=== PATIENT | male | born 1940 | race Caucasian/White ===

== ENCOUNTER 2018-04-10 08:28 | Outpatient (CLI) | payer MEDICARE, BC ==
[2018-04-10 09:20] LABS: Estimated GFR-MDRD - POC Greater than 90
[2018-04-10] MEDS ORDERED: ISOVUE-370 76%-LOCM 1 ML ONE (16:14)
--- NOTE | 2018-04-11 10:07 | CT ---
CT CORONARY ANGIOGRAM WITH AND WITHOUT CONTRAST: Date: 04/10/18 HISTORY: 77-year-old male with hypercholesterolemia. Height: 6'0 Weight: 182 lbs Heart rate during exam: 58-65 BPM TECHNIQUE: IV contrast: 98 mL [id number] Precontrast and postcontrast scans obtained through the heart, with limited field of view around the heart. 3D MIP reconstructions. FINDINGS: No thoracic aortic aneurysm or dissection. Mild ectasia of ascending thoracic aorta. Trachea and bila teral mainstem bronchi are patent and clear. Subsegmental atelectasis and/or scar at left lower lobe. No consolidation or mass visualized in the rest of the central portions of the lungs. No cardiomegal y or pericardial effusion. No chamber dilation. No atrial septal defect or ventricular septal defect. Left main: Tiny mild calcified plaque. No significant stenosis. Left anterior descending: Multifocal calcified plaque proximally and at mid portion. No high grade s tenosis proximally. There is a focal short segment moderate stenosis at mid LAD. First diagonal: Mild to moderate stenosis proximally, close to the origin. Left circumflex: Approximately 1 cm distal to the origin of the first obtuse marginal branch, there is calcified plaque causing moderate, and possibly severe, stenosis in the mid LCX. There is mild to moderate stenosis in the distal LCX. Mild stenosis at very proximal first obtuse marginal. RCA: No high grade stenosis at proximal, mid, and distal segments. Posterior descending: Right dominant PDA. Moderate to severe stenosis at origin of PDA from the RCA. Another focus of moderate stenosis at mid-distal PDA. IMPRESSION: 1. Coronary atherosclerotic disease, with mild and moderate stenosis, three vessel disease. 2. Possible severe stenosis at left circumflex and posterior descending. POS: [facility]
== END 2018-04-10 08:29 | disposition home or self-care (01) ==
LOC: BICCT 08:28
PROVIDERS: ATTEND Internal Medicine
DX: I65.29 Occlusion and stenosis of unspecified carotid artery (principal); I25.10 Atherosclerotic heart disease of native coronary artery without angina pectoris
CPT/HCPCS: 75574; 82565

== ENCOUNTER 2018-11-02 08:42 | Outpatient (CLI) | payer MEDICARE, BC ==
[2018-11-02 09:04] LABS: Estimated GFR-MDRD - POC Greater than 90
--- NOTE | 2018-11-02 09:23 | CT ---
EXAM: CTA of the chest HISTORY: Possible aortic root enlargement on ultrasound. COMPARISON: None TECHNIQUE: Multiple contiguous axial images were obtained a CTA of the chest with contrast. Sagittal and coronal 3-D MIP reformats were performed. FINDINGS: HEART: Normal in size without focal cardiac abnormality. Calcifications in the coronary arteries and aorta. PULMONARY ARTERIES: Normal in caliber without filling defects to suggest pulmonary emboli. THORACIC AORTA: The sinus of Valsalva measures 4.0 cm in greatest dimension. The ascending aorta khalif ures 3.5 cm in greatest dimension. The descending thoracic aorta measures 2.5 cm in greatest dimension. No aortic dissection. MEDIASTINUM: No hilar or mediastinal lymphadenopathy. LUNGS: No focal infiltrates or masses. PLEURAL SPACE: No pleural effusion or pneumothorax. CHEST WALL SOFT TISSUES: Unremarkable VISUALIZED OSSEOUS STRUCTURES: Degenerative changes are seen in the spine. VISUALIZED SUBDIAPHRAGMATIC STRUCTURES: Enlargement of the left renal pelvis without calyceal dilatat ion. IMPRESSION: Ectasia of the sinus of Valsalva
[2018-11-02] MEDS ORDERED: Iopamidol 370 76% 100 ML VIAL ONE (10:57)
== END 2018-11-02 08:43 | disposition home or self-care (01) ==
LOC: BICCT 08:42
PROVIDERS: ATTEND Internal Medicine Cardiovascular Disease
DX: I25.10 Atherosclerotic heart disease of native coronary artery without angina pectoris (principal); I77.810 Thoracic aortic ectasia
CPT/HCPCS: 71275; 82565; Q9967

== ENCOUNTER 2018-11-27 09:54 | Outpatient (CLI) | payer MEDICARE, BC ==
--- NOTE | 2018-11-27 10:37 | CT ---
EXAM: CTA Angio Abd Pelvis W WO Con PROVIDED CLINICAL HISTORY: Abnormal abdominal aortic ultrasound COMPARISON: CT 07/11/2014 FINDINGS: The visualized lung bases are free of significant opacity. There is interval development of a hyperdense exophytic mass arising from the posterior aspect of the left kidney inferiorly measuring approximately 1.4 cm. Bilateral parapelvic renal cysts, left greater than right redemonstrated. The solid abdominal organs are suboptimally evaluated in the arter ial phase of contrast but demonstrate an otherwise unremarkable CT appearance for the phase of contrast in which the study was acquired. There is no bowel dilatation, inflammatory fat stranding, free fluid or lymph node enlargement appare nt. There is stable ectasia of the distal infrarenal abdominal aorta measuring about 2.8 cm. Associated c hronic dissection is also stable. There is mild origin stenosis of the left renal artery. The celiac, superior mesenteric, main and accessory right renal and inferior mesenteric arteries appear p atent. Multifocal atherosclerotic vascular calcification is noted. The osseous structures demonstrate no concerning lytic or blastic lesions. Lumbar spine degenerative changes are seen. IMPRESSION: 1. Interval development of hyperdense exophytic left renal mass, probably solid and suspicious for ne oplasm. A hyperdense cyst could also be considered but is felt less likely. Dedicated imaging is recommended. 2. 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
== END 2018-11-27 09:55 | disposition home or self-care (01) ==
LOC: BICCT 09:54
PROVIDERS: ATTEND Internal Medicine Cardiovascular Disease
DX: I71.2 Thoracic aortic aneurysm, without rupture (principal); I77.811 Abdominal aortic ectasia; I71.02 Dissection of abdominal aorta; N28.9 Disorder of kidney and ureter, unspecified
CPT/HCPCS: 74174

== ENCOUNTER 2019-01-05 08:30 | Day surgery (SDC) | payer MEDICARE, BC ==
[2019-01-04 18:33] VITALS: BMI 25.7
[2019-01-05 08:39] LABS: #Eosinphils 0.2 thou/uL (0.0-0.7); #Lymphocytes 1.9 thou/uL (1.20-3.40); #Monocytes 0.6 thou/uL (0.11-0.59); #Neutrophils 4.5 thou/uL (1.40-6.50); %Basophils 0.2 % (0.0-1.0); %Eosinophils 2.5 % (0.0-10.0); %Lymphocytes 26.5 % (21.0-51.0); %Monocytes 8.2 % (0.0-10.0); %Neutrophils 62.6 % (42.0-75.0); Hemoglobin 13.7 g/dL (14.0-18.0); Mean Corpuscular HGB CONC 33.8 g/dL (32.0-36.0); Mean Corpuscular Hemoglobin 30.9 pg (27.0-31.0); Mean Corpuscular Volume 91.4 fL (78.0-98.0); Mean Platelet Volume 6.9 fL (7.4-10.4); Platelet Count 180 thou/uL (130-400); RBC Distribution Width 12.1 % (11.5-14.5); Red Blood Cell (RBC) Count 4.44 mill/uL (4.70-6.10); White Blood Cell (WBC) Count 7.3 thou/uL (4.8-10.8)
[2019-01-05 08:42] LABS: PTT 25.9 SEC (22.9-36.1)
--- NOTE | 2019-01-05 15:54 | CT ---
PROCEDURE: CT Renal Perc Biopsy PROVIDED CLINICAL HISTORY: Exophytic inferior pole left renal mass. COMPARISON: CTA abdomen on 11/27/2018 TECHNIQUE: The procedure including the risks and complications were explained to the patient, and informed conse nt was obtained. The patient was placed on the CT scan table in the prone position. A limited noncontrasted CT scan was obtained through the level of the kidneys with a grid localizer in place. A n area overlying the inferior pole left renal mass was marked. The area was meticulously prepped and draped in the usual sterile fashion. A small skin incision was made. A 17-gauge guide needle was advanced to the level of the inferior pole left renal mass, and needle po sitioning was confirmed with axial noncontrasted CT images. A total of four 18-gauge core needle biopsy specimens were obtained utilizing coaxial technique. The needle was removed, and hemostasis wa s achieved with direct pressure. Follow-up CT examination demonstrates gas at site of biopsy, but there is no hematoma or fluid seen at biopsy site. Patient remained stable during the procedure as we ll as postprocedure. Patient tolerated the procedure well and without immediate complication. Patient was transported to radiology nurses holding area for further monitoring prior to discharge. IMPRESSION: Technically successful CT-guided percutaneous biopsy of an inferior pole left renal mass. Pathology i s currently pending.
== END 2019-01-05 13:30 | disposition home or self-care (01) ==
LOC: CT 08:30
PROVIDERS: ATTEND Urology
PROC: 0TB13ZX Excision of Left Kidney, Percutaneous Approach, Diagnostic (ICD-10-PCS; principal; 2019-01-05)
DX: D30.02 Benign neoplasm of left kidney (principal); I10 Essential (primary) hypertension; E78.00 Pure hypercholesterolemia, unspecified; M06.9 Rheumatoid arthritis, unspecified; N40.1 Benign prostatic hyperplasia with lower urinary tract symptoms; R39.12 Poor urinary stream; Z87.891 Personal history of nicotine dependence; Z79.82 Long term (current) use of aspirin; Z79.899 Other long term (current) drug therapy
CPT/HCPCS: 36415; 50200; 77002; 85025; 85610; 85730; 88305; 88333; 88334; 88341; 88342

== ENCOUNTER 2019-06-02 07:36 | Outpatient (CLI) | payer MEDICARE, BC ==
[2019-06-02 15:19] LABS: Bacteria/HPF None Seen HPF (None Seen); Bilirubin Negative (Negative); Blood, Urine Negative (Negative); Clarity Clear (Clear); Glucose, Urine (Dipstick) Normal (Negative); Leukocyte Negative Leu/uL (Negative); Nitrite Negative (Negative); Protein, Urine (Dipstick) Negative (Neg-Trace); RBC/HPF 0-3 HPF (0-3); Squamous Epithelial None Seen HPF (0-3); Urobilinogen Normal mg/dL (Less than 2); WBC/HPF None Seen HPF (0-3)
[2019-06-02 15:20] LABS: Mean Corpuscular HGB CONC 31.9 g/dL (32.0-36.0); Mean Corpuscular Hemoglobin 28.4 pg (27.0-31.0); Mean Corpuscular Volume 89.3 fL (78.0-98.0); Mean Platelet Volume 7.7 fL (7.4-10.4); Platelet Count 192 thou/uL (130-400); RBC Distribution Width 11.5 % (11.5-14.5); Red Blood Cell (RBC) Count 4.91 mill/uL (4.70-6.10)
[2019-06-02 15:31] LABS: PTT 26.8 SEC (22.9-36.1)
[2019-06-02 15:39] LABS: Anion Gap 15 mmol/L (10-20); BUN (Urea Nitrogen) 14 mg/dL (8.4-25.7); Calc. Creatinine Clearance 0 mL/min (70-130); Calcium 9.5 mg/dL (7.8-10.44); Carbon Dioxide 24 mmol/L (23-31); Chloride 109 mmol/L (98-107); Estimated GFR-MDRD 79; Glucose 82 mg/dL (83-110); Potassium 4.5 mmol/L (3.5-5.1); Sodium 143 mmol/L (136-145)
== END 2019-06-02 07:37 | disposition home or self-care (01) ==
LOC: LABBT 07:36
PROVIDERS: ATTEND Urology
DX: Z01.818 Encounter for other preprocedural examination (principal); N40.1 Benign prostatic hyperplasia with lower urinary tract symptoms; R39.12 Poor urinary stream; D30.00 Benign neoplasm of unspecified kidney; N52.9 Male erectile dysfunction, unspecified; R97.20 Elevated prostate specific antigen [PSA]
CPT/HCPCS: 80048; 81001; 85027; 85610; 85730; 87086; 93005; 93010

== ENCOUNTER 2019-06-10 09:17 | Observation (INO) | payer MEDICARE, BC ==
[2019-06-02 14:16] VITALS: BMI 25.2
[2019-06-10] MEDS ORDERED: Levofloxacin 500 mg/D5W 100 ml Premix Bag ONE (09:52)
[2019-06-10] MEDS ORDERED: PROPOFOL 200 MG/20 ML VIAL ONE (09:53)
[2019-06-10] MEDS ORDERED: Ondansetron PF 4 MG/2 ML Vial ONE (09:53)
[2019-06-10] MEDS ORDERED: Lidocaine 1% PF 5 ML VIAL ONE (09:53)
[2019-06-10] MEDS ORDERED: Fentanyl 100 MCG/2 ML VIAL ONE (10:54)
[2019-06-10] MEDS ORDERED: B & O ONE (11:20)
[2019-06-10] MEDS ORDERED: Promethazine HCl 25 MG/ML VIAL SLOW IVP PRN (12:47)
[2019-06-10] MEDS ORDERED: Ondansetron HCl/PF 4 MG/2 ML Vial IVP PRN (12:47)
[2019-06-10] MEDS ORDERED: Morphine Sulfate 2 MG/ML SYRINGE SLOW IVP PRN (12:47)
[2019-06-10] MEDS ORDERED: diphenhydrAMINE 25 MG CAP PO PRN (12:54)
[2019-06-10] MEDS ORDERED: Ondansetron PF 4 MG/2 ML Vial IVP PRN (12:54)
[2019-06-10] MEDS ORDERED: Mag-Al 1200 mg/1200 mg/30 ML UDCUP PO PRN (12:54)
[2019-06-10] MEDS ORDERED: hydrALAZINE 20 MG/ML VIAL SLOW IVP PRN (12:54)
[2019-06-10] MEDS ORDERED: Acetaminophen 500 MG TAB PO PRN (12:54)
[2019-06-10] MEDS ORDERED: Bisacodyl 10 MG SUPP PR PRN (12:54)
[2019-06-10] MEDS ORDERED: Phenazopyridine HCl 97.5 MG TABLET PO PRN (12:54)
[2019-06-10] MEDS ORDERED: Oxybutynin 5 MG TAB PO PRN (12:54)
[2019-06-10] MEDS ORDERED: Morphine 2 MG/ML SYRINGE SLOW IVP PRN (12:54)
[2019-06-10] MEDS ORDERED: Hyoscyamine Sulfate SL 0.125 mg Tablet SL PRN (12:54)
[2019-06-10] MEDS ORDERED: traMADol HCl 50 MG TAB PO PRN (12:57)
--- NOTE | 2019-06-10 16:05 | OP ---
DATE OF PROCEDURE: 06/10/2019 SERVICE: Urology. PREOPERATIVE DIAGNOSES: 1. Benign prostatic hypertrophy. 2. Urinary obstruction. POSTOPERATIVE DIAGNOSIS: Benign prostatic hypertrophy with urinary obstruction. PROCEDURE PERFORMED: Transurethral resection of the prostate. INDICATIONS FOR PROCEDURE: Mr. Quan is a 78-year-old white male, who initially presented to [place] for BPH with urinary symptoms. He was evaluated for UroLift, but his prostate was too large at 88 mL. We elected instead to do a TURP. Risks and benefits of the surgery were discussed and he has agreed to proceed forward. DESCRIPTION OF PROCEDURE: After identification of armband and verification of consent, the patient was brought back to the operating room, where he underwent general anesthesia with an LMA. He was placed in dorsal lithotomy position and prepped and draped in the usual sterile fashion. After appropriate time-out, a 26-Colombian rigid resectoscope sheath with visual obturator was passed through the urethra with ease through the prostate into the bladder. Both ureters were identified in the orthotopic location. The visual obturator was switched out for the bipolar prostate resectoscope loop. Resection was started at the bladder neck and carried out to the verumontanum circumferentially until the prostate was extremely wide open. Resection was not carried out to the capsule laterally, but close to it. Upon completion, the prostate was extremely wide open. The bladder neck was also incised at 5 and 7 o'clock for further alleviation of obstruction. Meticulous hemostasis was performed using the coag function on the bipolar loop. All prostate chips were evacuated via the resectoscope sheath with an Ellik evacuator or manually with the resectoscope. Upon completion, there was no bleeding identified. Both ureters were in orthotopic location, unharmed. The prostate was very wide open. There was no resection carried out beyond the verumontanum. The resectoscope was then removed and a 22-Colombian 3-way Lemus catheter was placed into the patient's bladder with 30 mL of sterile water placed into the balloon. CBI was initiated. B and O suppositories placed in the patient's rectum. He was then taken out of positioning, awakened, taken to PACU for recovery in stable condition. COMPLICATIONS: None. ESTIMATED BLOOD LOSS: Minimal. RETAINED TUBES AND DRAINS: A 22-[place]ombian 3-way Lemus catheter on CBI. SPECIMENS: Prostate chips. DISPOSITION: The patient will be kept in the hospital overnight. We will plan a voiding trial in the morning and discharge subsequently with followup on an outpatient basis. Job ID: [id number]
[2019-06-10] MEDS: Docusate 100 MG CAP PO SCH (19:27)
[2019-06-11 05:43] LABS: #Eosinphils 0.2 thou/uL (0.0-0.7); #Lymphocytes 1.9 thou/uL (1.20-3.40); #Monocytes 0.8 thou/uL (0.11-0.59); #Neutrophils 6.9 thou/uL (1.40-6.50); %Basophils 0.4 % (0.0-1.0); %Eosinophils 1.9 % (0.0-10.0); %Lymphocytes 19.2 % (21.0-51.0); %Monocytes 8.5 % (0.0-10.0); Hemoglobin 12.9 g/dL (14.0-18.0); Mean Corpuscular Hemoglobin 30.1 pg (27.0-31.0); Mean Corpuscular Volume 91.1 fL (78.0-98.0); Mean Platelet Volume 7.5 fL (7.4-10.4); Platelet Count 175 thou/uL (130-400); RBC Distribution Width 11.4 % (11.5-14.5); White Blood Cell (WBC) Count 9.8 thou/uL (4.8-10.8)
[2019-06-11 06:08] LABS: Anion Gap 8 mmol/L (10-20); BUN (Urea Nitrogen) 10 mg/dL (8.4-25.7); Calc. Creatinine Clearance 79 mL/min (70-130); Calcium 8.5 mg/dL (7.8-10.44); Carbon Dioxide 27 mmol/L (23-31); Chloride 106 mmol/L (98-107); Estimated GFR-MDRD 78; Glucose 91 mg/dL (83-110); Potassium 4.4 mmol/L (3.5-5.1); Sodium 137 mmol/L (136-145)
[2019-06-11] MEDS: Docusate 100 MG CAP PO SCH (08:16)
[2019-06-11] MEDS ORDERED: Atorvastatin Calcium 20 MG TAB PO SCH (09:00)
[2019-06-11] MEDS ORDERED: Lisinopril 5 MG TAB PO SCH (09:00)
[2019-06-11 12:23] VITALS: BP 145/79; TEMP 98.5
--- NOTE | 2019-06-11 16:14 | PRG ---
DATE OF SERVICE: 06/11/2019 SUBJECTIVE: The patient states he is feeling very good. He had one or two bladder spasms overnight, but denies any other pain or ongoing issues. His CBI was turned off this morning. He denies any chest pain or shortness of breath. OBJECTIVE: VITAL SIGNS: Temperature 98.5, pulse 60, respirations 12, blood pressure 145/79, and saturation 95% on room air. GENERAL: No apparent distress, communicative, and alert. CARDIOVASCULAR: Regular rate and rhythm. ABDOMEN: Soft, nontender, and nondistended. Positive bowel sounds. : Lemus catheter in place, off CBI with clear yellow urine. [place] urine in the bag. EXTREMITIES: No clubbing, cyanosis, or edema. SCDs in place. LABORATORY EVALUATION: Full set of labs are in the [facility] system, which I have reviewed. Of note, the patient's white count is 9.8 and hemoglobin of 12.9. Creatinine of 0.94. ASSESSMENT AND PLAN: A 78-year-old white male with BPH, status post transurethral resection of the prostate, postop day 1. His CBI is off. We will discontinue his Lemus catheter with serial urine collection. If his urine is clear enough, we will discharge him home with followup on an outpatient basis. Job ID: [id number]
--- NOTE | 2019-06-11 20:08 | DIS ---
DATE OF ADMISSION: 06/10/2019 DATE OF DISCHARGE: 06/11/2019 ADMITTING DIAGNOSIS: BPH. DISCHARGE DIAGNOSIS: BPH. PROCEDURE PERFORMED: While inpatient, transurethral resection of prostate. BRIEF HISTORY: Mr. Quan is a 78-year-old white male with BPH and significant urinary complaints. He elected to proceed with UroLift procedure. However, his prostate was too large, so we elected to proceed with TURP instead. All risks and benefits were discussed. Full H and P can be found in the scanned portion of the [facility]. HOSPITAL COURSE: After surgery (please see operative note for details) the patient was admitted to the hospital for CBI. He had no events overnight other than a few bladder spasms. CBI was turned off in the morning and the patient had his catheter removed when his urine was inspected to be clear. He was able to void three voids afterwards with a light red but translucent urine without clots. The patient felt very good. I went over all the discharge instructions, answered all of his questions, and he was discharged home without any further issues. DISPOSITION: Discharged to home. DISCHARGE CONDITION: Good. DISCHARGE MEDICATION: The patient may resume all of his home medications except saw palmetto, which he will discontinue. He will be given additional prescriptions for: 1. Tramadol 50 mg p.o. q.6 hours p.r.n. for pain. 2. Colace 100 mg p.o. b.i.d. 3. Oxybutynin 5 mg p.o. t.i.d. p.r.n. bladder spasms. 4. Pyridium 200 mg p.o. t.i.d. p.r.n. dysuria. Follow up will be approximately in 2 weeks for postop check. Job ID: [id number]
== END 2019-06-11 13:57 | disposition home or self-care (01) ==
LOC: SDC 09:17 → SURG A 12:58
PROVIDERS: ADMIT Urology; ATTEND Urology
PROC: 0VT08ZZ Resection of Prostate, Via Natural or Artificial Opening Endoscopic (ICD-10-PCS; principal; 2019-06-10)
DX: N40.1 Benign prostatic hyperplasia with lower urinary tract symptoms (principal); N13.8 Other obstructive and reflux uropathy; I10 Essential (primary) hypertension; M10.9 Gout, unspecified; M47.819 Spondylosis without myelopathy or radiculopathy, site unspecified; Z79.899 Other long term (current) drug therapy
CPT/HCPCS: 36415; 80048; 85025; 88305; 96365; G0378; J1956; J2001; J2405; J2704; J3010

== ENCOUNTER 2020-07-04 12:23 | Outpatient (CLI) | payer MEDICARE, BC ==
--- NOTE | 2020-07-04 14:09 | ULT ---
ULTRASOUND RETROPERITONEUM COMPLETE: (RENAL) DATE: 07/04/2020 HISTORY: Follow-up left renal tumor, biopsy-proven oncocytoma COMPARISON: Ultrasound of 12/03/2018 FINDINGS: Multiple bilateral parapelvic renal cysts, the largest around the left renal pelvis. This probably do es not represent hydronephrosis. Right kidney: 11.5 x 6.5 x 6.5 cm. Left kidney: 2.5 x 5.5 x 7 cm. Pedunculated round 1.6 x 1.8 x 1.4 cm hypoechoic mass exophytically protruding from lower pole cortex of left kidney has not significantly changed. This was biopsy-proven oncocytoma. Prevoid urinary bladder volume 420 mL. Post void urinary bladder volume approximately 0 mL No interval change overall IMPRESSION: 1) approximately 1.8 cm exophytic left renal lower pole hypoechoic mass unchanged, biopsy-proven onco cytoma. 2) large parapelvic renal cysts on the left.
== END 2020-07-04 12:24 | disposition home or self-care (01) ==
LOC: BICULT 12:23
PROVIDERS: ATTEND Urology
DX: D30.02 Benign neoplasm of left kidney (principal); N28.1 Cyst of kidney, acquired; N28.89 Other specified disorders of kidney and ureter
CPT/HCPCS: 76770

== ENCOUNTER 2025-01-25 08:23 | Outpatient (CLI) | payer MEDICARE, BC ==
[2025-01-25 08:56] LABS: Estimated GFR - POC 75.0
[2025-01-25] MEDS ORDERED: Iopamidol 370 76% 100 ML VIAL ONE (14:07)
== END 2025-01-25 08:24 | disposition home or self-care (01) ==
LOC: CT 08:23
PROVIDERS: ATTEND Urology
DX: D30.00 Benign neoplasm of unspecified kidney (principal); N28.1 Cyst of kidney, acquired; I77.811 Abdominal aortic ectasia; I70.0 Atherosclerosis of aorta
CPT/HCPCS: 36415; 74178; 82565; Q9967

== ENCOUNTER 2025-03-16 15:08 | Outpatient (CLI) | payer MEDICARE, BC | END 2025-03-16 15:09 | disposition home or self-care (01) | LOC: SCSMRI 15:08 → EDBD 15:30 | PROVIDERS: ATTEND Psychiatry & Neurology Neurology | DX: R41.3 Other amnesia (principal); R90.82 White matter disease, unspecified | CPT/HCPCS: 70551 ==